=== PATIENT | male | born 1975 | race Caucasian/White ===

== ENCOUNTER 2017-08-14 20:00 | Emergency (ER) | payer BC ==
[~2017-08-14] VITALS: Ht 177.8 cm; Wt 103.4 kg
[~2017-08-14 20:00] MED LIST: HYDR-3083 PO; NAPR220C12 PO; OMEP-218 PO; POTASSIUM SUPPLEMENT PO
--- NOTE | 2017-08-14 20:09 | ER Report ---
History and Physical Time Seen By MD: 20:03 HPI/ROS CHIEF COMPLAINT: Swelling in face and rash HISTORY OF PRESENT ILLNESS: This is a 42 year old male. He came from urgent care. Had sudden onset of some swelling and redness in the face about 30 minutes prior to arrival. Had some itching. No shortness of breath. No swelling in mouth, throat or trouble swallowing. Had some sudden onset of nasal congestion. No cough. No chest pain. No nausea or vomiting. Normal bowel and bladder function recently. No musculoskeletal pain. Allergies: Coded Allergies: latex (Verified Allergy, Intermediate, HIVES, 02/22/15) Uncoded Allergies: BLUE NITRILE (Allergy, Intermediate, HIVES, 02/22/15) Home Meds Active Scripts Prednisone (PREDNISONE) 20 Mg Tablet, 40 MG PO QDAY for 2 Days, #4 TAB 1 Refill Prov:BROOKE ALFREDO MD 08/14/17 Reported Medications Testosterone (TESTOSTERONE) 5 Gm Powder, 200 MG MC 1XW 08/14/17 [Potassium Supplement] No Conflict Check, 240 MG PO DAILY 02/22/15 Naproxen Sodium (ALEVE) 220 Mg Capsule, 220 MG PO BID, CAPSULE 02/22/15 Omeprazole Magnesium (PRILOSEC OTC) 20 Mg Tablet.dr, 1 TAB PO QDAY, TAB 02/22/15 Reviewed Nurses Notes: Yes Hx Smoking: Yes (HAS SMOKED 1/2 PPD FOR 25 YEARS) Smoking Status: Heavy Tobacco Smoker Exposure to Second Hand Smoke?: No Hx Substance Use Disorder: No Hx Alcohol Use: Yes Constitutional Vital Sign - Last 24 Hours 08/14/17 08/14/17 20:05 21:47 Temp 98.1 Pulse 86 85 Resp 19 16 B/P (MAP) 138/87 132/85 (101) Pulse Ox 99 95 O2 Delivery Room Air Room Air Physical Exam General Appearance: The patient is alert. No acute distress. Eyes: Pupils are equal, round. No pallor, injection or icterus. ENT: Mucous membranes are moist. Normal oral mucosa. Posterior oropharynx is normal. Normal tympanic membranes and canals. Neck: Supple and non tender. No lymphadenopathy. Respiratory: Breathing easily and unlabored. Lungs are clear to auscultation. Cardiovascular: Regular rate and rhythm. No murmurs, gallops or rubs. No edema. Neurological: Alert and oriented x3. No focal neurologic deficits Skin: Redness of face and neck area and small areas on chest/back as well, appears urticarial. Musculoskeletal: No tenderness noted. Full range of motion. DIFFERENTIAL DIAGNOSIS: After history and physical exam, differential diagnosis was considered for what appears likely allergic reaction versus acute viral syndrome. Medical Decision Making Data Points Laboratory Hematology Test 08/14/17 20:35 Influenza Virus Type A (PCR) Negative (NEGATIVE) Influenza Virus Type B (PCR) Negative (NEGATIVE) Chemistry Test 08/14/17 20:35 Influenza Virus Type A (PCR) Negative (NEGATIVE) Influenza Virus Type B (PCR) Negative (NEGATIVE) ED Course/Re-evaluation Clinical Indication for ER IV: Hydration, IV Access ED Course Improved with the IV fluids, Solu-Medrol, Benadryl and Pepcid. Slight redness left on right neck area. No trouble swallowing or breathing. Decision to Disposition Date: Aug 14, 2017 Decision to Disposition Time: 21:38 Depart Departure Latest Vital Signs Vital Signs Date Time Temp Pulse Resp B/P (MAP) Pulse Ox O2 Delivery O2 Flow Rate FiO2 08/14/17 21:47 85 16 132/85 (101) 95 Room Air 08/14/17 20:05 98.1 Impression: Primary Impression: Allergic reaction Condition: Improved Disposition: HOME OR SELF-CARE Referrals: DAISY AMAYA DO (PCP) New Scripts Prednisone (PREDNISONE) 20 Mg Tablet 40 MG PO QDAY for 2 Days, #4 TAB 1 Refill Prov: BROOKE ALFREDO MD 08/14/17 Patient Instructions: General Allergic Reaction (ED) Additional Instructions: Prednisone 20mg tablets, take 2 tablets once a day for 2 days. Benadryl 25mg over the counter tablets, take 1-2 tablets every 6 hours for rash and itching. Topical use of hydrocortisone cream as needed for itching Follow-up with primary care or consider seeing an waste minimization technician for further evaluation. Problem Qualifiers Primary Impression: Allergic reaction Encounter type: initial encounter Qualified Codes: T78.40XA - Allergy, unspecified, initial encounter BROOKE ALFREDO MD Aug 14, 2017 20:09
[2017-08-14] MEDS ORDERED: FAMOTIDINE(*) 20MG/50ML PREMIX 50 ML IVPB ONE (20:10)
[2017-08-14] MEDS ORDERED: methylPREDNIS SUCC 125 MG/2ML IVP ONE (20:10)
[2017-08-14] MEDS ORDERED: diphenhydrAMINE 50 MG/ML VIAL IVP ONE (20:10)
[2017-08-14] MEDS ORDERED: TEST5POW21 MC (20:12)
[2017-08-14] MEDS ORDERED: NS(*) 0.9% 1000 ML BAG 1,000 ML IV ONE (20:15)
[2017-08-14] MEDS ORDERED: PRED20TA6 PO (21:39)
[2017-08-14] MEDS ORDERED: predniSONE 20 MG TAB PO ONE (21:40)
[2017-08-14 21:47] VITALS: BP 132/85
== END 2017-08-14 21:56 | disposition home or self-care (01) ==
LOC: ER 20:18
DX: T78.40XA Allergy, unspecified, initial encounter (principal)
CPT/HCPCS: 87502; 96365; 96375; 99284; J1200; J2930; J3490; J7030; J7512

== ENCOUNTER → 2018-01-08 | Outpatient (CLI) | payer BC ==
[~2018-01-08] MED LIST changes: +PRED20TA6 PO; +TEST5POW21 MC
== END ==
LOC: LAB 06:27
PROVIDERS: ATTEND Urology
DX: E29.1 Testicular hypofunction (principal); N52.9 Male erectile dysfunction, unspecified
CPT/HCPCS: 36415; 84403

== ENCOUNTER → 2019-02-02 | Outpatient (CLI) | payer BC ==
[2019-02-02 06:32] LABS: PLATELET COUNT, AUTOMATED 256 K/uL (150-450)
[2019-02-02 06:43] LABS: LDL CHOLESTEROL 93 mg/dl
== END ==
LOC: LAB 05:54
PROVIDERS: ATTEND Urology
DX: Z00.00 Encounter for general adult medical examination without abnormal findings (principal); E29.1 Testicular hypofunction; N52.9 Male erectile dysfunction, unspecified
CPT/HCPCS: 36415; 82040; 82247; 82310; 82374; 82435; 82465; 82565; 82947; 83718; 84075; 84132; 84155; 84295; 84403; 84450; 84460; 84478; 84520; 85025